=== PATIENT | female | born 1965 | race Caucasian/White ===

== ENCOUNTER 2017-09-26 09:06 | Day surgery (SDC) | payer BC, OTHER ==
[~2017-09-26 09:06] MED LIST: HYDROmorphone HCL 2 MG/ML VIAL IV PRN; RINGER'S SOLUTION,LACTATED 1,000 ML IV PRN; ceFAZolin SODIUM 1 GM VIAL IV PRN; oxyCODONE HCL/ACETAMINOPHEN 1 TAB TABLET PO PRN
[2017-09-26] MEDS ORDERED: RINGER'S SOLUTION,LACTATED 1,000 ML IV ONE (09:20)
[2017-09-26] MEDS ORDERED: BUPIVACAINE HCL 50 ML VIAL IJ ONE (10:26)
--- NOTE | 2017-09-26 10:45 | POSTOP NO ---
Date of Surgery: 09/26/17 Patient Tolerated the Procedure: Well Post Operative Diagnosis/Procedures: Produce Buyer: Fareed Andrews PA-C Post-operative Diagnosis: Left trigger thumb Finding: Above Procedure: Left trigger thumb release Estimated Blood Loss: Minimal Specimens: None
--- NOTE | 2017-09-26 10:46 | OR ---
Operative Report - Dictated Report Narrative: Date: 09/26/2017 Physician: Jaswinder Hernandez M.D. Desk Clerks Supervisor: Fareed Andrews PA-C Preoperative diagnosis: Left thumb Trigger finger Postoperative diagnosis: Left thumb Trigger finger Procedure: Left thumb A1 ana release Anesthesia: MAC Plus local Complications: None Estimated blood loss: Minimal Tourniquet time: 7 Minutes with forearm esmarch band Specimens: None Retained implants: None Drains: None Indications: Mrs. Cortes Is a 51 year-old female who has been followed in my clinic with complaints of trigger finger. Physical exam as demonstrated triggering of the finger. Conservative measures have failed including but not limited to passage of time, activity modification, medications, and injections. The risks, benefits, and alternatives were discussed in clinic. The risks being bleeding, infection, nerve, tendon, blood vessel injury, persistent pain, wound competitions, need for additional procedures, and persistent symptoms. Consent was obtained in the clinic. Procedure: After marking the correct extremity in the preoperative holding area, a timeout was performed in the operating room. IV antibiotics consisting of Ancef were administered prior to the procedure. A forearm esmarch tourniquet was applied to the operative upper arm. The arm was exsanguinated and esmarch band was applied 0.5% Marcaine without epinephrine was infused into the projected incision site at the palmar flexion crease over the metacarpal phalangeal joint in line with the digit. Using loupe magnification, a transverse incision in the appropriate palmar flexion crease in line with the digit. Blunt dissection was carried down through the subcutaneous tissues using bipolar cautery for hemostasis. Care was taken to protect the digital nerves. Staying midline along the flexor tendon, the A1 ana was identified. A luis alberto was made in the proximal edge of the A1 ana and tenotomies were utilized in order to completely transect the A1 ana. Care was to stay midline and avoid transection of the A2 ana. Soft tissues overlying the flexor tendon proximal to the A1 ana were also released ensuring that there were no other compressive structures contributing to the triggering. The finger was placed through range of motion and demonstrated no additional catching. The tendons were visualized and mobilized out of the wound, and did not demonstrate any gross pathology or masses that required debridement. The tendons were noted to be intact. Once was felt that we had decompressed the flexor tendons as they passed under the A1 ana, the tourniquet was removed. Hemostasis was obtained with pressure and bipolar cautery. There was good return of color and capillary refill to the digit. Additional half percent Marcaine without epinephrine was infused into the skin edges. The wound was thoroughly irrigated. The skin was closed with interrupted 4-0 nylon and Dermabond. Sterile dressings consisting of a Band-Aid was applied. All sponge, needle, blade, and instrument counts were correct prior to closing the wounds. The patient was awoken and transferred to the postanesthesia care unit in stable condition.
[2017-09-26 11:57] VITALS: BP 128/78
== END 2017-09-26 09:07 | disposition home or self-care (01) ==
LOC: AMB 09:06
PROVIDERS: ATTEND Orthopaedic Surgery
DX: M65.312 Trigger thumb, left thumb (principal); M19.049 Primary osteoarthritis, unspecified hand; F17.210 Nicotine dependence, cigarettes, uncomplicated; Z68.29 Body mass index [BMI] 29.0-29.9, adult